=== PATIENT | male | born 1935 | race Caucasian/White ===

== ENCOUNTER 2020-07-11 07:56 | Emergency (ER) | payer BC, MEDICARE ==
--- NOTE | 2020-07-11 08:50 | EDM.PDOC ---
ED HPI GENERAL MEDICAL PROBLEM - General Chief Complaint: Genitourinary Problem Stated Complaint: NEEDING TO PASS HIS URINE OFTEN Time Seen by Provider: 07/11/20 08:43 Source of Information: Reports: Patient, Old Records, RN History Limitations: Reports: No Limitations - History of Present Illness INITIAL COMMENTS - FREE TEXT/NARRATIVE: 84 yo male with a pHx of known BPH and who is on Flomax presents with urinary frequency as a complaint. No fever or flank pain. He does have mild dysuria. He has been noticing for several mos that he needs to void a bit more often and often has double voiding. Has an appt in [place] where he gets his medical care in the near future. Onset: Gradual Onset Date: 07/10/20 Duration: Hour(s): Location: Reports: Back (sacral), Pelvis (bladder) Quality: Reports: Burning (urethral) Improves with: Reports: None Worsens with: Reports: Other (time) Context: Reports: Other (See HPI) Associated Symptoms: Reports: No Other Symptoms. Denies: Diaphoresis, Fever/Chills, Nausea/Vomiting Treatments TIP STITCHER: Reports: Other (see below) (none) Bladder Pain Score (Numeric/FACES): 3 - Related Data Allergies Allergy/AdvReac Type Severity Reaction Status Date / Time Penicillins Allergy Rash Verified 07/11/20 08:17 Home Meds: Home Meds Aspirin [Adult Low Dose Aspirin EC] 81 mg PO DAILY 07/11/20 [History] Ciprofloxacin HCl [Cipro] 250 mg PO BID #14 tablet 07/11/20 [Rx] Omeprazole 20 mg PO DAILY 07/11/20 [History] Tamsulosin [Tamsulosin 24 Hr] 0.4 mg PO DAILY 07/11/20 [History] lisinopriL [Lisinopril] 20 mg PO DAILY 07/11/20 [History] metFORMIN [Glucophage] 500 mg PO BID 07/11/20 [History] Past Medical History HEENT History: Reports: Hard of Hearing Cardiovascular History: Reports: Arrhythmia, Hypertension Genitourinary History: Reports: Other (See Below) Other Genitourinary History: kidney cyst Musculoskeletal History: Reports: Fracture Other Musculoskeletal History: dcollar bone fx sternim fx Endocrine/Metabolic History: Reports: Diabetes, Type II, Obesity/BMI 30+ - Infectious Disease History Infectious Disease History: Reports: Chicken Pox, Measles - Past Surgical History GI Surgical History: Reports: Cholecystectomy, Colonoscopy Social & Family History - Tobacco Use Smoking Status *Q: Never Smoker Second Hand Smoke Exposure: No - Caffeine Use Caffeine Use: Reports: Coffee, Soda - Recreational Drug Use Recreational Drug Use: No ED ROS GENERAL - Review of Systems Review Of Systems: See Below Constitutional: Reports: No Symptoms GI/Abdominal: Reports: No Symptoms : Reports: Dysuria, Frequency, Hematuria, Urgency. Denies: Flank Pain Musculoskeletal: Reports: Back Pain (sacral) Skin: Reports: No Symptoms ED EXAM, RENAL/ - Physical Exam Exam: See Below Exam Limited By: No Limitations General Appearance: Alert, WD/WN, No Apparent Distress Eye Exam: Bilateral Eye: Normal Inspection Ears: Normal External Exam, Normal Canal, Hearing Loss Nose: Normal Inspection Throat/Mouth: Normal Inspection, Normal Lips, Normal Oropharynx, Normal Voice, No Airway Compromise Head: Atraumatic, Normocephalic Respiratory/Chest: No Respiratory Distress, Lungs Clear, Normal Breath Sounds, No Accessory Muscle Use Back Exam: Normal Inspection. No: CVA Tenderness (R), CVA Tenderness (L) Extremities: Normal Inspection Neurological: Alert, Oriented, CN II-XII Intact, Normal Cognition, No Motor/Sensory Deficits Course - Vital Signs Text/Narrative:: Bladder scan 189 ml Last Recorded V/S: Last Vital Signs Temp 36.5 C 07/11/20 08:31 Pulse 81 07/11/20 08:31 Resp 16 07/11/20 08:31 BP 120/64 07/11/20 08:31 Pulse Ox 95 07/11/20 08:31 - Orders/Labs/Meds Orders: Active Orders 24 hr Category Date Time Status Bladder Scan [RC] ASDIRECTED Care 07/11/20 08:03 Active CULTURE URINE [RM] Stat Lab 07/11/20 08:54 Ordered Labs: Laboratory Tests 07/11/20 Range/Units 08:42 Urine Color Yellow (YELLOW) Urine Appearance Cloudy A (CLEAR) Urine pH 7.0 (5.0-8.0) Ur Specific [place] 1.020 (1.008-1.030) Urine Protein 30 H (NEGATIVE) mg/dL Urine Glucose (UA) 250 H (NEGATIVE) mg/dL Urine Ketones Negative (NEGATIVE) mg/dL Urine Occult Blood Large H (NEGATIVE) Urine Nitrite Positive H (NEGATIVE) Urine Bilirubin Negative (NEGATIVE) Urine Urobilinogen 4.0 H (0.2-1.0) EU/dL Ur Leukocyte Esterase Large H (NEGATIVE) Urine RBC Packed H (0-5) Urine WBC Packed H (0-5) Ur Epithelial Cells Few Amorphous Sediment Rare Urine Bacteria Many Urine Mucus Rare Departure - Departure Time of Disposition: 09:00 Disposition: Home, Self-Care 01 Condition: Fair Clinical Impression: Cystitis - Discharge Information *PRESCRIPTION DRUG MONITORING PROGRAM REVIEWED*: Not Applicable *COPY OF PRESCRIPTION DRUG MONITORING REPORT IN PATIENT [place]RLENE: Not Applicable Prescriptions: Ciprofloxacin HCl [Cipro] 250 mg PO BID #14 tablet Referrals: PCP,None [Primary Care Provider] - Forms: ED Department Discharge Additional Instructions: Drink ample fluids. Take Cipro every 12 hrs until gone. Recheck in the clinic in 3 days if not improving to review your pending culture results. Consider doubling the dose of your Flomax to 0.8 mg to hopefully reduce your prostate issues. Sepsis Event Note (ED) - Evaluation Sepsis Screening Result: No Definite Risk - Focused Exam Vital Signs: Vital Signs Temp Pulse Resp BP Pulse Ox 07/11/20 08:31 36.5 C 81 16 120/64 95 07/11/20 08:14 36.5 C 81 16 120/64 95 - My Orders Last 24 Hours: My Active Orders 07/11/20 08:03 Bladder Scan [RC] ASDIRECTED 07/11/20 08:54 CULTURE URINE [RM] Stat - Assessment/Plan Last 24 Hours: My Active Orders 07/11/20 08:03 Bladder Scan [RC] ASDIRECTED 07/11/20 08:54 CULTURE URINE [RM] Stat
== END 2020-07-11 09:17 | disposition home or self-care (01) ==
LOC: JP.ED 07:56
DX: N30.90 Cystitis, unspecified without hematuria (principal); I10 Essential (primary) hypertension; E11.9 Type 2 diabetes mellitus without complications; E66.9 Obesity, unspecified; Z68.31 Body mass index [BMI] 31.0-31.9, adult; Z88.0 Allergy status to penicillin; Z90.89 Acquired absence of other organs; Z79.82 Long term (current) use of aspirin; Z79.899 Other long term (current) drug therapy
CPT/HCPCS: 51798; 81001; 87086; 87088; 87186; 99283

== ENCOUNTER 2020-11-09 10:29 | Emergency (ER) | payer MEDICARE ==
[2020-11-09] MEDS ORDERED: cefTRIAXone 1 GM Vial IM ONE (11:02)
--- NOTE | 2020-11-09 11:17 | EDM.PDOC ---
ED HPI GENERAL MEDICAL PROBLEM - General Chief Complaint: Genitourinary Problem Stated Complaint: POSS UTI Time Seen by Provider: 11/09/20 10:55 Source of Information: Reports: Patient History Limitations: Reports: No Limitations - History of Present Illness INITIAL COMMENTS - FREE TEXT/NARRATIVE: 85-year-old male with UTI symptoms for the past 5 days, he urinates frequently but drinks lots of water. He went into the clinic this morning with a urine sample that he obtained at home, was found to be confused and febrile and there was concerns of early sepsis or more serious illness. He was asked to be evaluated at the emergency room and was brought in by his friend. This is the third time this has happened in the last 3 months, he has responded well to antibiotics in the past. The UA done at the clinic was nitrite positive with many bacteria but not a lot of white cells especially relative to his UA that was done with his last cystitis. On arrival to the emergency room the patient actually looks really good now, he is afebrile without confusion and has stable vitals. Onset: Gradual Duration: Day(s): (5 days of symptoms) Associated Symptoms: Reports: Other (Dysuria, urinary frequency). Denies: Nausea/Vomiting, Shortness of Breath - Related Data Allergies Allergy/AdvReac Type Severity Reaction Status Date / Time Penicillins Allergy Rash Verified 07/11/20 08:17 Home Meds: Home Meds Aspirin [Adult Low Dose Aspirin EC] 81 mg PO DAILY 07/11/20 [History] Omeprazole 20 mg PO DAILY 07/11/20 [History] Tamsulosin [Tamsulosin 24 Hr] 0.4 mg PO DAILY 07/11/20 [History] lisinopriL [Lisinopril] 20 mg PO DAILY 07/11/20 [History] metFORMIN [Glucophage] 500 mg PO BID 07/11/20 [History] Past Medical History HEENT History: Reports: Hard of Hearing Cardiovascular History: Reports: Arrhythmia, Hypertension Genitourinary History: Reports: Other (See Below) Other Genitourinary History: kidney cyst Musculoskeletal History: Reports: Fracture Other Musculoskeletal History: dcollar bone fx sternim fx Endocrine/Metabolic History: Reports: Diabetes, Type II, Obesity/BMI 30+ - Infectious Disease History Infectious Disease History: Reports: Chicken Pox, Measles - Past Surgical History GI Surgical History: Reports: Cholecystectomy, Colonoscopy Social & Family History - Tobacco Use Tobacco Use Status *Q: Never Tobacco User - Caffeine Use Caffeine Use: Reports: None ED ROS GENERAL - Review of Systems Review Of Systems: See Below Constitutional: Reports: Fever, Chills, Malaise Respiratory: Denies: Shortness of Breath Cardiovascular: Denies: Chest Pain GI/Abdominal: Reports: Abdominal Pain (Some lower abdominal discomfort intermittent). Denies: Constipation, Diarrhea, Nausea, Vomiting : Reports: Dysuria, Frequency, Urgency. Denies: Flank Pain Skin: Reports: No Symptoms Neurological: Reports: No Symptoms Psychiatric: Reports: No Symptoms ED EXAM, RENAL/ - Physical Exam Exam: See Below Exam Limited By: No Limitations General Appearance: Alert, No Apparent Distress Eye Exam: Bilateral Eye: Normal Inspection Head: Atraumatic Respiratory/Chest: No Respiratory Distress, Lungs Clear Cardiovascular: Regular Rate, Rhythm GI/Abdominal: Tender (Mild discomfort to palpation across the lower abdomen but no focal tenderness, rebound or guarding) Neurological: No: Confused Psychiatric: Normal Affect, Normal Mood Skin Exam: Warm, Dry Course - Vital Signs Last Recorded V/S: Last Vital Signs Temp 99.9 F 11/09/20 10:54 Pulse 97 11/09/20 10:54 Resp 18 11/09/20 10:54 BP 113/60 11/09/20 10:54 Pulse Ox 95 11/09/20 10:54 - Orders/Labs/Meds Meds: Medications Discontinued Medications Generic Name Dose Route Start Last Admin Trade Name Mati PRN Reason Stop Dose Admin Ceftriaxone Sodium 1 gm 11/09/20 11:02 11/09/20 11:11 Rocephin IM 11/09/20 11:03 1 gm ONETIME ONE Administration Lidocaine HCl 5 ml 11/09/20 11:06 11/09/20 11:11 Xylocaine-Mpf 1% INJECT 11/09/20 11:07 2.1 ml ONETIME ONE Administration - Re-Assessments/Exams Free Text/Narrative Re-Assessment/Exam: 11/09/20 11:16 Results from the clinic were reviewed, 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 Patient is interested in trying again outpatient medication. He was given 1 g of Rocephin IM and will be restarted on Bactrim DS twice daily. He will return in the next 24 to 48 hours if worsening such as increased confusion, nausea or vomiting of the medication, or increased pain. Otherwise finish the antibiotic for 10 days and I strongly encouraged him to have an upper appointment or consultation with urology when he gets back to [place] to discuss his recurring UTIs. A culture was initiated at the clinic and will be available in 48 hours Departure - Departure Time of Disposition: 11:29 Disposition: Home, Self-Care 01 Clinical Impression: UTI, Urinary tract infectious disease - Discharge Information Instructions: Urinary Tract Infection, Adult, [id number] Referrals: PCP,None [Primary Care Provider] - Forms: ED Department Discharge Care Plan Goals: Take antibiotic twice a day for 10 days as directed, and when in [place] talk to your doctor about a urology consultation regarding your recurring urinary tract infections. Return to the emergency room at any time if worsening despite treatment, such as persistent fever, confusion, nausea or vomiting or increased pain. Sepsis Event Note (ED) - Evaluation Sepsis Screening Result: No Definite Risk - Focused Exam Vital Signs: Vital Signs Temp Pulse Resp BP Pulse Ox 11/09/20 10:54 99.9 F 97 18 113/60 95 11/09/20 10:47 99.9 F 97 18 113/60 95
== END 2020-11-09 11:29 | disposition home or self-care (01) ==
LOC: JP.ED 10:29
DX: N39.0 Urinary tract infection, site not specified (principal); E11.9 Type 2 diabetes mellitus without complications; I10 Essential (primary) hypertension; E66.9 Obesity, unspecified; Z68.29 Body mass index [BMI] 29.0-29.9, adult; Z79.82 Long term (current) use of aspirin; Z88.0 Allergy status to penicillin; Z79.84 Long term (current) use of oral hypoglycemic drugs; Z79.899 Other long term (current) drug therapy
CPT/HCPCS: 96372; 99283; J0696; J2001

== ENCOUNTER 2022-05-27 08:57 | Emergency (ER) | payer MEDICARE ==
[2022-05-27] MEDS ORDERED: Sodium Chloride 0.9% 10 ML Syringe FLUSH PRN (10:24)
[2022-05-27] MEDS ORDERED: Ondansetron 4 MG/2 ML SDV IVPUSH ONE (10:24)
[2022-05-27] MEDS ORDERED: Glucagon,Human Recombinant 1 MG Vial IV ONE (10:24)
== END 2022-05-27 12:50 | disposition home or self-care (01) ==
LOC: JP.ED 08:57
DX: R13.10 Dysphagia, unspecified (principal); I10 Essential (primary) hypertension; E11.9 Type 2 diabetes mellitus without complications; E66.9 Obesity, unspecified; Z68.30 Body mass index [BMI] 30.0-30.9, adult; Z88.0 Allergy status to penicillin; Z79.82 Long term (current) use of aspirin; Z79.84 Long term (current) use of oral hypoglycemic drugs; Z79.899 Other long term (current) drug therapy
CPT/HCPCS: 96374; 96375; 99282; 99283-25; J1610; J2405; J3490